=== PATIENT | female | born 2000 ===

== ENCOUNTER → 2021-04-19 11:16 | Outpatient (CLI) | payer OTHER, SELFPAY ==
--- NOTE | ~2021-04-19 | CT_ITS ---
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 Left ankle pain. TECHNIQUE: Computed tomography (CT) of the left ankle and foot was performed without intravenous cont rast. Automated exposure control and iterative reconstruction technique were employed. The dose-lengt h product was 207.92 mGy-cm. COMPARISON: None FINDINGS: There is a healing transverse fracture medial malleolus in near-anatomic alignment with int ernal fixation with lag screw. There is a healing fracture of distal fibula with internal fixation wi th semitubular plate and multiple screws. There is an ununited bone fragment anterior to distal fibul a in the area of anterior tibiofibular ligament. There is a bone fragment posterior to distal tibia. The talar dome is normal. Joint spaces are normal. There are enthesophytes at the posterior and plant ar aspects of calcaneal tuberosity. IMPRESSION: 1. Healing transverse fracture of medial malleolus with screw fixation. 2. Healing oblique fracture of distal fibula with plate and screw fixation. 3. Bone fragments anterior to distal fibula and posterior to distal tibia. Reviewed, dictated and finalized at location A. PHONE SERVICE REPRESENTATIVE
== END ==
PROVIDERS: Visit Provider Orthopaedic Surgery
DX: M96.0 Pseudarthrosis after fusion or arthrodesis (principal); S82.52XD Displaced fracture of medial malleolus of left tibia, subsequent encounter for closed fracture with routine healing; S82.432D Displaced oblique fracture of shaft of left fibula, subsequent encounter for closed fracture with routine healing
CPT/HCPCS: 73700

== ENCOUNTER → 2021-09-02 10:00 | Outpatient (CLI) | payer OTHER, SELFPAY ==
--- NOTE | ~2021-09-02 | CT_ITS ---
EXAMINATION: CT ankle LT wo con DATE: 09/02/2021 10:17 INDICATION: Pseudoarthrosis posterior fusion TECHNIQUE: High resolution computed tomography (CT) of the left ankle was performed without intraveno us contrast. Additional sagittal and coronal reconstructions were performed. Dose Fabricio The dose-length product was 202.02 mGy-cm. COMPARISON: 04/19/2021 FINDINGS: Essentially anatomic alignment of a now healed transverse fracture of the medial malleolus with lag s crew fixation. The oblique fibular fracture which is fixed with a lateral plate and screws has also h ealed with solid fusion and cortical remodeling. Persistent residual small nonunited fracture fragmen t versus heterotopic ossicle along the anterior margin of the fibular fracture at the expected locati on of the anterior inferior tibiofibular ligament. A second previously ununited small bone fragment a long the lateral margin of the posterior malleolus in the expected location of the insertion of the p osterior inferior tibiofibular ligament has now fused to the posterior malleolus. No other fractures identified. Joint spaces at the left ankle, mid and hindfoot are normal. No ankle joint effusion. Tin y Achilles and plantar calcaneal enthesophytes. IMPRESSION: 1. Essentially complete healing of internally fixed fractures of the medial and lateral malleoli both in essentially anatomic alignment. 2. Small bone fragments along the anterior and along the posterior inferior tibiofibular ligaments, t he former which remains nonunited and the latter now fused to the posterior malleolus. Reviewed, dictated and finalized at location B. IMPRESSION: 1. Essentially complete healing of internally fixed fractures of the medial and lateral malleoli both in essentially anatomic alignment. 2. Small bone fragments along the anterior and along the posterior inferior tib iofibular ligaments, the former which remains nonunited and the latter now fuse d to the posterior malleolus.
== END ==
PROVIDERS: Visit Provider Orthopaedic Surgery
DX: M96.0 Pseudarthrosis after fusion or arthrodesis (principal)
CPT/HCPCS: 73700

== ENCOUNTER → 2022-03-01 16:30 | Outpatient (CLI) | payer OTHER, SELFPAY ==
--- NOTE | ~2022-03-01 | MR_ITS ---
EXAMINATION: MR ankle LT wo con DATE: 03/01/2022 17:09 INDICATION: Spontaneous rupture of the flexor tendons of the left foot and ankle TECHNIQUE: Magnetic resonance imaging (MRI) of the left ankle was performed without intravenous contr ast. Sequences included sagittal, coronal, and axial proton-density weighted fast spin echo without a nd with fat saturation. COMPARISON: None. FINDINGS: Medial ankle ligaments: Thickening of the superficial deltoid ligament and the superomedial component of the spring ligament complex without surrounding edema consistent with scarring related to chronic sprain. Deep deltoid li gament and the medial plantar oblique and infra plantar lateral components of the spring ligament com plex are normal. Lateral ankle ligaments: There is attenuation of the anterior talofibular ligament without surrounding edema consistent with c hronic partial tear. Thickening of the anterior inferior tibiofibular ligament without surrounding ed adriana consistent with scarring related to additional chronic less severe partial tear. Small osseous ex crescences at the tibial footplate of the otherwise normal-appearing posterior inferior tibiofibular ligament likely sequela of old healed avulsion fracture. The calcaneofibular and posterior talofibula r ligaments are normal. Tendons: Achilles tendon is normal. The peroneus longus and brevis tendons are normal. The tibialis anterior a nd extensor hallucis longus and extensor digitorum longus tendons are normal. The tibialis posterior, flexor digitorum longus and flexor hallucis longus tendons are normal. Plantar fascia: Plantar aponeurosis is normal. Bones/other: Residual screw tracts related to prior internal fixation of old healed fractures of the medial malleo santiago and distal fibula. The fractures have healed in essentially anatomic alignment. Mild scarring in the overlying subcutaneous tissues. No acute fracture or pathologic marrow replacing process. Mild os teoarthritis with small foci of subarticular edema-like signal change at the calcaneocuboid articulat ion Fluid: Is a large amount of fluid in the joint space. No tenosynovitis or other abnormal fluid collections. IMPRESSION: 1. Healed fractures of the medial and lateral malleoli in essentially anatomic alignment with stigmat a of since removed prior internal fixation. 2. Scarring consistent with old partial tears of the superficial deltoid ligament, superomedial compo nent of the spring ligament complex, anterior talofibular and anterior inferior tibiofibular ligament and likely old healed avulsion fracture tibial insertion of the otherwise normal posterior inferior tibiofibular ligament. 3. Flexor and extensor tendons of the ankle are normal. Reviewed, dictated and finalized at location A. D DUMPER IMPRESSION: 1. Healed fractures of the medial and lateral malleoli in essentially anatomic alignment with stigmata of since removed prior internal fixation. 2. Scarring consistent with old partial tears of the superficial deltoid ligame nt, superomedial component of the spring ligament complex, anterior talofibular and anterior inferior tibiofibular ligament and likely old healed avulsion fra cture tibial insertion of the otherwise normal posterior inferior tibiofibular ligament. 3. Flexor and extensor tendons of the ankle are normal.
== END ==
PROVIDERS: Visit Provider Orthopaedic Surgery
DX: M66.372 Spontaneous rupture of flexor tendons, left ankle and foot (principal); Z87.81 Personal history of (healed) traumatic fracture
CPT/HCPCS: 73721